=== PATIENT | male | born 1990 | race Caucasian/White ===

== ENCOUNTER 2019-08-22 18:33 | Emergency (ER) | payer OTHER ==
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
[2019-08-22 18:47] VITALS: BP 146/94; PULSE 98; TEMP 97.8; BMI 26.6
[2019-08-22] MEDS ORDERED: IBUPROFEN 400 MG TABLET (FP) PO ONE ×2 (18:53→18:54)
[2019-08-22] MEDS ORDERED: DIPHTH,PERTUSS(ACELL),TET 0.5 ML DISP.SYRIN IM ONE ×2 (19:11→19:12)
== END 2019-08-22 19:18 | disposition home or self-care (01) ==
LOC: FER 18:33
PROC: 3E0234Z Introduction of Serum, Toxoid and Vaccine into Muscle, Percutaneous Approach (ICD-10-PCS; principal; 2019-08-22)
DX: S20.312A Abrasion of left front wall of thorax, initial encounter (principal); S00.83XA Contusion of other part of head, initial encounter; Y04.2XXA Assault by strike against or bumped into by another person, initial encounter; Y93.89 Activity, other specified; Y92.89 Other specified places as the place of occurrence of the external cause
CPT/HCPCS: 90715; 99282-25